=== PATIENT | female | born 1985 | race Two or more races ===

== ENCOUNTER 2024-04-30 17:57 | Inpatient (IN) | payer MEDICAID, SELFPAY ==
[2024-04-30] VITALS (45 sets, daily range): BP systolic 118–131; BP diastolic 57–71; PULSE 63–88; RESP 16–17; TEMP 36.8–37.2; O2SAT 98–100; BMI 42.5
--- NOTE | 2024-04-30 19:10 | XR_ITS ---
Examination: Complete OB ultrasound greater than 14 weeks Date and time of exam: April 30, 2024 10:27 PM Indications: Pelvic contractions beginning 2 days ago Findings: Viable intrauterine single fetus with single amniotic sac presentation cephalic Cardiac motion 150 BPM Placenta anterior grade 3 Amniotic fluid index 8.0 cm spine maternal left Cervix 3.4 cm Ovaries obscured by the uterus. Composite estimated gestational age based on BPD, head circumference, abdominal circumference, femur length is 36 weeks 4 days Estimated weight 3112.3. Survey of intracranial anatomy, spinal anatomy, abdominal anatomy, four-chamber heart performed with no abnormalities identified. Impression: Viable intrauterine gestation cephalic presentation Estimated gestational age 36 weeks 4 days.
[2024-04-30] MEDS: RINGERS LACTATED 1000 ML 1,000 ML 100 ML IV (19:30)
[2024-04-30 19:37] LABS: Basophils % (Auto) 0 % (0-2.5); Eosinophils # (Auto) 0.1 Thou/mm3 (0.0-0.5); Eosinophils % (Auto) 1 % (0-10); Hemoglobin 11.6 g/dL (12.0-16.0); Immature Granulocytes % (Auto) 0 % (0-0); Immature Granulocytes Auto 0.03 Thou/mm3 (0.00-0.00); Lymphocytes % (Auto) 13 % (10-50); Mean Corpuscular HGB Conc 34.1 g/dl (31.0-37.0); Mean Corpuscular Hemoglobin 28.8 pg (25.0-35.0); Mean Corpuscular Volume 84 fL (80-100); Monocytes # (Auto) 0.4 Thou/mm3 (0.0-0.8); Monocytes % (Auto) 5 % (0-12); Neutrophils % (Auto) 81 % (37-80); Nucleated Red Blood Cell % 0 /100 WBC (0); Platelet Count 252 Thou/mm3 (140-440); Red Blood Count 4.03 Miln/mm3 (4.00-5.20); White Blood Count 7.5 Thou/mm3 (3.6-11.0)
--- NOTE | 2024-04-30 19:51 | ESHP_ITS ---
Documentation for date of: 04/30/24 OB Labor/Induct. HPI History of Present Illness Chief complaint: 38 y/o 39w 0d presents for IOL due to AMA and obesity : 5 Para: 4 Term pregnancies: 4 pregnancies: 0 Living children: 4 History of Abortions: Spontaneous and Elective: 0 History of Vaginal deliveries: 4 History of sections: No History of : No Date of last menstrual period: 08/01/23 RAMÓN: 05/07/24 Gestational Age (weeks): 39 Gestational Age (days): 0 Gestational age based on last menstrual period: 39 Indication for induction: medical complication (AMA, Obesity ) History of present illness: 38 y/o 39w 0d presents for IOL due to AMA and obesity with BMI 39. Cervix is 1/thick/-3 vertex, membranes intact. Category 1 tracing. Pt has a hx of x4. Pt also has anemia. EFW 2600g History of Present Dating criteria: based on 1st trimester US only Adequate Care: Yes Ultrasounds: normal 1st trimester US and normal mid trimester US Obstetrical complications: other (AMA and obesity and anemia) Labs Maternal Blood Type: A Pos Labs: Positive: Rubella Titre, Negative: RPR, Hepatitis B, HIV, Chlamydia, Gonorrhea and Group Beta Strep and Unknown: Herpes Type 1, Herpes Type 2 and Covid-19 Review of Systems Review of Systems Systems Reviewed: All systems reviewed, normal except as documented Past Medical History Surgical History SURGICAL: Negative Section Meds Home Medications and Allergies Home Medications ?Medication ?Instructions ?Recorded ?Confirmed ?Type Vitamin * 1 tab PO QDAY #0 tabs 12/15/13 04/30/24 History Allergies Allergy/AdvReac Type Severity Reaction Status Date / Time No Known Allergies Allergy Unverified 04/30/24 18:14 OB Exam Physical Exam Vital signs: Temp Pulse Resp BP Pulse Ox 99 F 79 17 128/69 99 04/30/24 19:04 04/30/24 19:04 04/30/24 19:04 04/30/24 19:04 04/30/24 19:48 Constitutional Constitutional: no acute distress Routine HEENT Exam Head: Present normocephalic and atraumatic Eye: Present EOMI, PERRL and normal accommodation ENT: Present mucous membranes moist Routine Neck Exam Neck: Present full ROM Routine Respiratory Exam Respiratory: Absent respiratory distress Routine Cardiovascular Exam Cardiovascular: Present RRR Routine Abdominal Exam Abdominal: Present soft Comments: Gravid Uterus EFW 2600g Routine Exam External: Present normal urethra appearance; Absent lesions Detailed Labor and Delivery Exam Dilation (cm): 1 Effacement (%): 0 Cervix position: posterior station: -3 Consistency: soft Presentation: Vertex Membranes: intact Baseline heart rate: 130 monitor accelerations: 15x15 monitor decelerations: 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 (11-25) Contraction frequency (min): none Routine Extremities Exam Extremities: Present full ROM Routine Back/Spine/Pelvis Exam Back/Spine: Present full ROM Routine Skin Exam Skin: Present intact, dry and warm Routine Neurological Exam Neurological: Present alert, oriented X3 and CN II-XII intact Routine Psychiatric Exam Psychiatric: Present normal affect and normal thought process OB Results Labs 04/30/24 18:10 Labs: Short CBC 04/30/24 Range/Units 18:10 WBC 7.5 (3.6-11.0) Thou/mm3 Hgb 11.6 L (12.0-16.0) g/dL Hct 34.0 L (36.0-46.0) % Plt Count 252 (140-440) Thou/mm3 OB Assessment & Plan Assessment and Plan (1) Encounter for induction of labor: Status: Acute (2) AMA (advanced maternal age) primigravida 35+: Status: Acute (3) with 39 completed weeks gestation: Status: Acute (4) Anemia affecting in third trimester: Status: Acute (5) Morbid obesity: Status: Acute Additional Plan Induction method: other (Cervidil) Additional Plan Comment: Routine Admit orders Consult anesthesia for an epidural Ok for intermittent monitoring early in labor OK to eat early in labor (2) AMA (advanced maternal age) primigravida 35+ Qualifiers: Trimester: third trimester Qualified Code(s): O09.513 - Supervision of elderly primigravida, third trimester
[2024-04-30 20:10] LABS: Syphilis Nonreactive (Nonreactive)
--- NOTE | 2024-04-30 21:19 | XR_ITS ---
Examination: Biophysical profile, ultrasound Date and time of exam: April 30, 2024 10:15 PM Indications: Onset pelvic contractions beginning 2 days ago Technique: Multiple transabdominal sonographic images of the pelvis abdomen obtained. Attention is directed to the breathing movement, gross body movement, amniotic fluid volume and tone. Findings: Amniotic fluid index 9.4 cm Total biophysical profile is 8 of 8. breathing movement is 2. Gross body movement is 2. tone is 2. Qualitative amniotic fluid volume is 2 Impression: Biophysical profile is 8 of 8.
[2024-05-01] VITALS (216 sets, daily range): BP systolic 110–190; BP diastolic 49–91; PULSE 62–109; RESP 16–18; TEMP 36.6–37.1; O2SAT 84–100
[2024-05-01] MEDS: DINOPROSTONE 10 MG VAG.SUPP VAGINAL (00:18)
--- NOTE | 2024-05-01 07:17 | PD.LDPN ---
Documentation for date of: 05/01/24 OB Labor Progress Note Pain Control Pain control: tolerating well Pelvic Exam Dilation (cm): 1 Effacement (%): 0 station: -3 Contractions Monitor mode: External Contraction frequency: 2-4 Contraction duration: 40-60 Status status: Category l Assessment and Plan Assessment: induction ongoing Plan OB labor note: continuous present management Comments: Pt has some pain this morning, ok to give IV pain meds Cervidil is coming out at 1200 and will reassess the net step. At 3 cm pt can get an epidural Anticipate
[2024-05-01] MEDS: RINGERS LACTATED 1000 ML 1,000 ML 100 ML IV ×2 (13:17→13:55)
--- NOTE | 2024-05-01 14:09 | PD.LDPN ---
Documentation for date of: 05/01/24 OB Labor Progress Note Pain Control Pain control: epidural Pelvic Exam Dilation (cm): 3 Effacement (%): 80 station: -3 Amniotic membrane status: Ruptured Contractions Monitor mode: External Contraction frequency: 2-4 Contraction duration: 40-60 Status status: Category l Assessment and Plan Assessment: induction ongoing Plan OB labor note: begin Pitocin augmentation Comments: Pt is comfortable with the epidural Start pitocin per protocol Anticipate
--- NOTE | 2024-05-01 14:19 | PD.LDPN ---
Documentation for date of: 05/01/24 OB Labor Progress Note Pain Control Pain control: epidural Pelvic Exam Dilation (cm): 10 Effacement (%): 100 station: +1 Amniotic membrane status: Ruptured Contractions Monitor mode: External Contraction frequency: 2-4 Contraction duration: 50-60 Contraction phase: Contraction Status status: Category ll Assessment and Plan Assessment: other (2nd stage) Plan OB labor note: continuous present management Comments: Pt had a prolonged deceleration right after the epidural Will let pt labor down to recover once she has urge to push will push Anticipate
[2024-05-01] MEDS: OXYTOCIN in NS 20 units 20 UNIT/1,000 ML BAG 125 UNIT IV (15:01)
[2024-05-01] MEDS: BENZO/LANO/ALOE (Dermoplast) 60 GM CAN 1 SPRAY TOP (15:05)
[2024-05-01] MEDS: TRANEXAMIC ACID 1,000 MG IVPB 1,000 MG/100 ML BAG 200 MG IV (15:34)
--- NOTE | 2024-05-01 16:15 | PD.LDDELS ---
Data ([place]) Data Hx Section: No Maternal Blood Type: A Pos Rubella Titre: Positive RPR: Non-reactive Labs: Negative: RPR, Hepatitis B, HIV, Chlamydia, Gonorrhea and Group Beta Strep and Unknown: Herpes Type 1 and Herpes Type 2 : 5 Para: 4 Term: 4 : 0 Livin : 0 Delivery Data ([place]) Labor Data Stimulated/Augmented: No Induction: Yes ROM Date: 05/01/24 ROM Time: 12:08 Rupture Type: SROM Amniotic Fluid: Bloody Delivery Data EDC: 05/07/24 EDC calculated by:: LMP/early US confirmation Labor Onset Stage 1 Date: 05/01/24 Labor Onset Stage 1 Time: 12:09 Labor Onset Stage 2 Date: 05/01/24 Labor Onset Stage 2 Time: 14:20 Delivery Date: 05/01/24 Delivery Time: 14:58 Gestational age (weeks): 39 Gestational age (days): 1 Placenta Delivery Date: 05/01/24 Placenta Delivery Time: 15:01 Delivered by: Zeenat Tse Delivery nurse: Mone Nesbitt Pesticide Control Inspector at delivery: No Support person(s) at delivery: FOB Other staff at delivery: 2nd Nurse Other staff at delivery: Nursery Nurse Other staff at delivery: Ashlee Thurman Other staff at delivery: Savanah Mckeon Delivery Method Delivery: Vaginal Delivery Type: Spontaneous Presentation: Vertex Position: OA Anesthesia Type Primary Anesthesia: Epidural Secondary Anesthesia: None Delivery Room Medications Other Intrapartum Medications: No Post Delivery Medications: Antibiotics Post Delivery Medications N/A: Yes Placenta Placenta Delivery: Spontaneous Placenta Cultures Obtained: No Placenta Sent for Examination: No Cord Sample: Cord Blood Obtained Episiotomy Episiotomy: None EBL Estimated blood loss (ml): 100 Umbilical Cord Umbilical Vessels: 3 Nuchal Cord: x1 Additional Procedures of a viable female . head delivered with a tight nuchal cord easily reduced. Then 's anterior shoulder delivered with gentle downward traction subsequent deliver the posterior shoulder and the body without complications. Infant placed on mother's abdomen. Vigorous cry upon delivery. Cord was clamped. Cut by FOB. Cord blood obtained. Three-vessel cord noted. Placenta expelled spontaneously and intact. No lacerations noted. Perineum intact. Sponge and needle count correct. Excellent hemostasis achieved after vigorous fundal massage and removal of clots from the posterior fornix. EBL is 100. Mother and baby stable, skin to skin and bonding in LDR. [place] Data ([facility]) [place] Data Infant Gender: Female Weight Grams: 2760 1 Minute Total: 8 5 Minute Total: 8
[2024-05-01 21:24] LABS: Basophils % (Auto) 0 % (0-2.5); Eosinophils # (Auto) 0.1 Thou/mm3 (0.0-0.5); Eosinophils % (Auto) 1 % (0-10); Hematocrit 29.8 % (36.0-46.0); Hemoglobin 9.9 g/dL (12.0-16.0); Immature Granulocytes % (Auto) 0 % (0-0); Immature Granulocytes Auto 0.03 Thou/mm3 (0.00-0.00); Lymphocytes # (Auto) 1.1 Thou/mm3 (1.0-4.8); Lymphocytes % (Auto) 11 % (10-50); Mean Corpuscular HGB Conc 33.2 g/dl (31.0-37.0); Mean Corpuscular Hemoglobin 28.2 pg (25.0-35.0); Mean Corpuscular Volume 85 fL (80-100); Monocytes # (Auto) 0.6 Thou/mm3 (0.0-0.8); Monocytes % (Auto) 6 % (0-12); Neutrophils % (Auto) 81 % (37-80); Nucleated Red Blood Cell % 0 /100 WBC (0); Platelet Count 156 Thou/mm3 (140-440); RDW Standard Deviation 43.8 fL (36.4-46.3); Red Blood Count 3.51 Miln/mm3 (4.00-5.20); White Blood Count 9.8 Thou/mm3 (3.6-11.0)
[2024-05-01] MEDS: IBUPROFEN TAB 400 MG TABLET 800 MG PO (22:12)
[2024-05-02 04:42] VITALS: BP 113/70; PULSE 65; RESP 16; TEMP 36.6; O2SAT 99
[2024-05-02] MEDS: HYDROcodone/APAP 5/325 TABLET 1 TAB PO (04:52)
--- NOTE | 2024-05-02 07:57 | PD.LDDS ---
DS: Providers Provider Date of admission: 04/30/24 17:57 Primary care physician: Physician No Primary/Family Admitting Provider: Zeenat Tse CNM Attending Provider on Admission: Chase Baker MD Attending Provider on DC: Zeenat Tse CNM Discharging Provider: Zeenat Tse CNM Anticipated date of discharge: 05/02/24 DS: Diagnosis Discharge Diagnosis (1) Normal spontaneous vaginal delivery: Status: Acute (2) Encounter for care of lactating mother: Status: Acute (3) Morbid obesity: Status: Acute (4) Anemia affecting in third trimester: Status: Acute (5) with 39 completed weeks gestation: Status: Acute (6) AMA (advanced maternal age) primigravida 35+: Status: Acute (7) Encounter for induction of labor: Status: Acute Problem List Completed Was Problem List Reviewed/Reconciled?: Yes Summary/Hosp Course Brief History: 38 y/o 39w 0d presents for IOL due to AMA and obesity with BMI 39. Cervix is 1/thick/-3 vertex, membranes intact. Category 1 tracing. Pt has a hx of x4. Pt also has anemia. EFW 2600g 05/01/24: of a viable female infant. head delivered with a tight nuchal cord easily reduced. Then 's anterior shoulder delivered with gentle downward traction subsequent deliver the posterior shoulder and the body without complications. Infant placed on mother's abdomen. Vigorous cry upon delivery. Cord was clamped. Cut by FOB. Cord blood obtained. Three-vessel cord noted. Placenta expelled spontaneously and intact. No lacerations noted. Perineum intact. Sponge and needle count correct. Excellent hemostasis achieved after vigorous fundal massage and removal of clots from the posterior fornix. EBL is 100. Mother and baby stable, skin to skin and bonding in LDR. 05/02/24: day 1. Patient is stable and afebrile doing well. Breast-feeding infant well. Denies dizziness shortness of breath. No problems voiding. Passing gas. Uterus is nontender fundus firm minimal lochia. Eager to go home. Discharge instructions given. Patient to follow-up with Zeenat Tse CNM in 3 weeks . Peripartum Data Delivery Method: Normal Vaginal Delivery Episiotomy Description: None Laceration Description: no complications: none [place] 1: Gender: Female Disposition of : home Status at Discharge Cognitive/behavioral status at discharge: Alert and oriented x 3 Functional status at discharge: independent ambulation Overall status at discharge: patient is progressing back to baseline Time Spent with Patient Time attestation: Total time spent providing and/or coordinating discharge services: Time spent: Greater than 30 minutes Exam Vital Signs Temp Pulse Resp BP Pulse Ox 97.9 F 89 18 137/63 H 99 05/01/24 13:19 05/01/24 14:52 05/01/24 13:19 05/01/24 14:52 05/01/24 15:05 Constitutional Constitutional: no acute distress Routine HEENT Exam Head: Present normocephalic and atraumatic Eye: Present EOMI, PERRL and normal accommodation ENT: Present mucous membranes moist Routine Neck Exam Neck: Present supple, full ROM and trachea midline Routine Respiratory Exam Respiratory: Present chest non-tender, lungs clear, normal breath sounds and no resp distress Routine Cardiovascular Exam Cardiovascular: Present RRR Routine Abdominal Exam Abdominal: Present soft and normoactive bowel sounds; Absent tenderness or distended Comments: Uterus nontender Fundus firm Routine Exam Patient deferred: external exam Routine Extremities Exam Extremities: Present full ROM, pulses intact and normal capillary refill; Absent calf tenderness or tenderness Routine Back/Spine/Pelvis Exam Back/Spine: Present full ROM Routine Skin Exam Skin: Present intact, dry and warm Routine Neurological Exam Neurological: Present alert, oriented X3 and CN II-XII intact Routine Psychiatric Exam Psychiatric: Present normal affect and normal thought process Discharge Plan Plan Patient Disposition: HOME (Self Care) Patient condition on transfer: Stable Prescriptions/Referrals Prescriptions/Med Rec: New docusate sodium [Colace] 100 mg capsule 100 mg PO BID Qty: 60 0RF cephalexin 500 mg tablet 500 mg PO BID Qty: 14 0RF lanolin 50 % ointment 1 applic topical TID PRN (Reason: skin irritation) Qty: 15 0RF ibuprofen 600 mg tablet 600 mg PO Q6H PRN (Reason: pain) Qty: 90 0RF Continued Vitamin * 1 EACH tablet 1 tab PO QDAY Qty: 0 Referrals: No Primary/Family,Physician [Primary Care Provider] - Patient/Caregiver Discharge Instructions Meds to Beds: No Discharge Activity: activity as tolerated Other Discharge Activity Instructions:: Follow-up with Zeenat Westland, CNM in 3 weeks Education Materials: After a Vaginal , After Delivery Concerns Print Language: [place] Islander Stand Alone Forms: [place] Award Info., Patient Portal Info Letter Discharge Order Discharge Orders: Discharge (Routine); Ordered 05/02/24 Ordered By: Zeenat Tse Planned Discharge Date 05/02/24 (6) AMA (advanced maternal age) primigravida 35+ Qualifiers: Trimester: third trimester Qualified Code(s): O09.513 - Supervision of elderly primigravida, third trimester
[2024-05-02 08:50] VITALS: BP 140/74; PULSE 81; RESP 17; TEMP 36.6; O2SAT 98
[2024-05-02] MEDS: DOCUSATE SOD 100 MG CAPSULE PO (08:57)
[2024-05-02] MEDS: IBUPROFEN TAB 400 MG TABLET 800 MG PO (09:06)
[2024-05-02 11:47] VITALS: BP 119/68; PULSE 62; RESP 62; TEMP 36.7; O2SAT 98
[2024-05-02 15:55] VITALS: BP 128/72; PULSE 76; RESP 15; TEMP 36.6; O2SAT 99
== END 2024-05-02 16:15 | disposition home or self-care (01) | DRG 560 ==
LOC: S4SX 05-01 15:10 → S4NX 05-01 17:58
PROVIDERS: Admitting Provider Nurse Practitioner Women's Health; Visit Provider Obstetrics & Gynecology
DX: O99.02 Anemia complicating childbirth (principal); Z3A.39 39 weeks gestation of pregnancy; O99.214 Obesity complicating childbirth; E66.01 Morbid (severe) obesity due to excess calories; O69.1XX0 Labor and delivery complicated by cord around neck, with compression, not applicable or unspecified; Z37.0 Single live birth; O76 Abnormality in fetal heart rate and rhythm complicating labor and delivery
CPT/HCPCS: 36415; 59409; 76805; 76819; 85025; 86780; 86850; 86900; 86901; 94762; J2590; J2795; J3010; J3490; J7120; A9270